=== PATIENT | male | born 1995 | race Caucasian/White ===

== ENCOUNTER 2018-05-23 15:14 | Emergency (ER) | payer SELFPAY ==
[2018-05-23 15:38] VITALS: BP 117/56
--- NOTE | 2018-05-23 15:53 | ED ---
GI/ HPI - HPI Summary HPI Summary: 23 yr old male with exposure to sex partner with chlamydia. He has had some dysuria for about a week. He has been getting right testicular pain for over a week that comes and goes. He had pain in the waiting room. He denies fever, chills, back pain, penile drainage. - History of Current Complaint Chief Complaint: UCGeneralIllness Time Seen by Provider: 05/23/18 15:43 Stated Complaint: PERSONAL Pain Intensity: 0 - Allergy/Home Medications Allergies/Adverse Reactions: Allergies Allergy/AdvReac Type Severity Reaction Status Date / Time No Known Allergies Allergy Verified 05/23/18 15:33 Home Medications: Home Medications NK [No Home Medications Reported] 05/23/18 [History Confirmed 05/23/18] PMH/Surg Hx/FS Hx/Imm Hx Infectious Disease History: No Infectious Disease History: Denies: Traveled Outside the [place] in Last 30 Days - Family History Known Family History: Positive: None - Social History Lives: With Family Alcohol Use: Occasionally Substance Use Type: Reports: None Smoking Status (MU): Heavy Every Day Tobacco Smoker Type: Cigarettes Amount Used/How Often: 1 PPD Length of Time of Smoking/Using Tobacco: 8 years Review of Systems Constitutional: Negative Positive: dysuria, other - testicular pain All Other Systems Reviewed And Are Negative: Yes Physical Exam Triage Information Reviewed: Yes Vital Signs On Initial Exam: Initial Vitals Temp Pulse Resp BP Pulse Ox 98.5 F 87 16 117/56 97 05/23/18 15:33 05/23/18 15:33 05/23/18 15:33 05/23/18 15:33 05/23/18 15:33 Vital Signs Reviewed: Yes Appearance: Positive: Well-Appearing, No Pain Distress Skin: Positive: Warm, Skin Color Reflects Adequate Perfusion Head/Face: Positive: Normal Head/Face Inspection Eyes: Positive: EOMI ENT: Positive: Normal ENT inspection Neck: Positive: Nontender Respiratory/Lung Sounds: Positive: Clear to Auscultation, Breath Sounds Present Cardiovascular: Positive: RRR. Negative: Murmur Abdomen Description: Positive: Soft. Negative: Hernia @ Male Genital Exam: Positive: No Hernia, Scrotum Tenderness (R), Testicular Tenderness (R). Negative: Erythema Musculoskeletal: Positive: Strength/ROM Intact Neurological: Positive: Sensory/Motor Intact, Alert, Oriented to Person Place, Time, CN Intact II-III, Speech Normal Diagnostics - Vital Signs Vital Signs Temp Pulse Resp BP Pulse Ox 05/23/18 15:33 98.5 F 87 16 117/56 97 - Laboratory Lab Statement: Any lab studies that have been ordered have been reviewed, and results considered in the medical decision making process. GIGU Course/Dx - Course Course Of Treatment: 23 yr old with testicular pain, and chlamydia exposure. He will go to the ER for US. He was offered ambulance but states he will drive himself there now. - Diagnoses Provider Diagnoses: Testicular pain, right Discharge - Sign-Out/Discharge Documenting (check all that apply): Patient Departure All imaging exams completed and their final reports reviewed: No Studies - Discharge Plan Condition: Good Disposition: HOME-RECOMMEND TO ED Patient Education Materials: Testicle Pain (ED) Referrals: No Primary Care Phys,NOPCP [Primary Care Provider] - [facility] [[facility]] Additional Instructions: You need to go to the ER immediately after leaving here. You have been offered an ambulance, but you have said that you are driving yourself there now. - Billing Disposition and Condition Condition: GOOD Disposition: Home-Recommend to ED
== END 2018-05-23 15:58 | disposition home health service (06) ==
LOC: UCCORT 15:14
DX: N50.811 Right testicular pain (principal); R30.0 Dysuria; F17.210 Nicotine dependence, cigarettes, uncomplicated; Z20.2 Contact with and (suspected) exposure to infections with a predominantly sexual mode of transmission
CPT/HCPCS: 99202; G0463